=== PATIENT | female | born 1990 | race Caucasian/White ===

== ENCOUNTER 2018-10-30 12:07 | Outpatient (REF) | payer MEDICAID, SELFPAY ==
[2018-11-02 15:16] LABS: Chlamydia Result Negative; GC Result Negative; Specimen Description URINE
== END 2018-10-30 12:27 ==
LOC: LBN 12:07
PROVIDERS: PCP Nurse Practitioner; Visit Provider Nurse Practitioner Women's Health
DX: Z11.3 Encounter for screening for infections with a predominantly sexual mode of transmission (principal)
CPT/HCPCS: 87491; 87591

== ENCOUNTER 2019-03-04 16:07 | Outpatient (REF) | payer MEDICARE, MEDICAID, SELFPAY ==
[2019-03-08 15:30] LABS: Chlamydia Result Negative; GC Result Negative; Specimen Description CERVIX
== END 2019-03-04 16:27 ==
LOC: LBN 16:07
PROVIDERS: PCP Nurse Practitioner; Visit Provider Nurse Practitioner Women's Health
DX: Z11.3 Encounter for screening for infections with a predominantly sexual mode of transmission (principal); R69 Illness, unspecified
CPT/HCPCS: 87491; 87591

== ENCOUNTER 2019-04-06 10:27 | Emergency (ER) | payer MEDICARE, MEDICAID, SELFPAY ==
[2019-04-06 10:28] VITALS: PULSE 82; RESP 16; TEMP 36.6; O2SAT 100
--- NOTE | 2019-04-06 10:29 | W.ED.GENAD ---
Discharge Plan Disposition Patient Disposition: HOME Condition: Stable Discharge Details Chief Complaint: Allergic Clinical Impression: Conjunctivitis, Viral URI, Swelling of eyelid Primary Care Provider: Joann Ball ED Provider: Hedy Flores Home Meds and New Rx's Prescriptions: Continued Mirena 20 mcg/24 hours (5 yrs) 52 mg intrauterine device 1 device IY ONCE RF: 0 Discharge Instructions Instructions: Upper Respiratory Infection (ED), Conjunctivitis (ED) Additional Instructions: Apply cool compresses to your left eye several times daily for 20 minutes at a time. Avoid scratching or rubbing her left eye is much as possible. Take Claritin or Benadryl as needed and directed for itching. If you develop worsening pain or yellow discharge or crusting in her left eye, start the eye antibiotic ointment. Follow-up with your primary care doctor this week for reevaluation. Return to the emergency department if you develop any worsening or new concerning symptoms. Discharge Data Discharge Date/Time-TO BE ENTERED AT DEPARTURE: 04/06/19 11:06 Discharge Physician: Hedy Flores Medical Decision Making 28-year-old female who presents with left eyelid swelling, itching and irritation since this morning in addition to rhinorrhea, mild dry cough and scratchy throat for the past few days. Denies known injury or foreign body. She denies blurry vision, fever, headache or neck pain. She does not wear contacts or glasses. She denies any sore throat at present or shortness of breath. Left eye conjunctive appears injected with upper and lower eyelid mild to moderate edema, more prominent on lower eyelid. No obvious chemosis noted. No foreign body noted. Unable to view TMs due to cerumen impaction. No other ENT abnormalities noted. Due to complaints of URI symptoms in addition to eye irritation, differential diagnosis includes viral conjunctivitis, allergic conjunctivitis. She has no complaint of yellow discharge or crusting, so doubt bacterial conjunctivitis at this time. Doubt corneal abrasion as she has more complaint of itching so do not see an indication for fluorescein staining. She has only minimal edema so do not see an indication for oral steroids. She has no pain with EOMI or significant periorbital edema or erythema, so exam not consistent with periorbital or orbital cellulitis. She is advised to apply cool compresses to her left eye and avoid rubbing or scratching. She is advised to take [id number] URI medications in addition to her Benadryl or Claritin to help with itching. We will send home with erythromycin ointment tube to apply if she has worsening pain or development of yellow crusting or discharge. She is advised to follow-up with primary care doctor for reevaluation and to return here anytime if worse. Medical Records Medical records reviewed: Yes I reviewed the patient's medical records. HPI General Mode of arrival: ambulatory. Date/Time Provider Initiated Documentation: 04/06/19 10:28. Limitations to Documentation: no limitations. Information obtained by: patient. HPI Narrative: Pt is a 28yo F w/ no significant past medical history who presents to the ED w/ a c/o L eyelid swelling and L eye irritation and itching since this morning. She also admits to minimal scratchy throat this morning, nasal congestion and runny nose today. She also has a mild dry cough and thought she was developing a cold. She was at home with her 15 month old daughter and was concerned about her being alone with her and her eye swelling becoming worse so she called an ambulance. She denies fever, headache, neck pain, difficulty swallowing, sore throat now, shortness of breath, chest pain, abdominal pain, new soaps, new lotions, new detergents, new makeup, new pets, new meds, new foods. She denies blurry vision, yellow crusting or discharge, contacts or glasses. She denies any injury to her eye or foreign body sensation. She denies any flashes of light or seeing spots. Related Data Home Medications Medication Instructions Recorded Confirmed levonorgestrel 20 mcg/24 hours (5 1 device IY ONCE 10/30/18 03/04/19 yrs) 52 mg intrauterine device Allergies Allergy/AdvReac Type Severity Reaction Status Date / Time pineapple AdvReac Intermediate Throat Unverified 03/04/19 13:36 emileling Review of Systems Review of Systems All systems reviewed & are unremarkable except as noted in HPI and below Constitutional Reports as per HPI, Denies chills and Denies fever(s) Eyes Denies blurry vision, Reports irritation and Reports itchy eyes ENT Denies dizziness, Reports nasal congestion, Denies sore throat and Denies throat swelling Cardiovascular Denies chest pain and Denies dyspnea Respiratory Reports cough and Denies dyspnea Gastrointestinal Denies abdominal pain, Denies diarrhea and Denies vomiting Genitourinary Denies hematuria and Denies dysuria Musculoskeletal Denies back pain and Denies numbness Integumentary/Breasts Denies lesions and Denies rash Neurologic Denies dizziness, Denies focal weakness and Denies numbness Allergic/Immunologic Reports itchy eyes and Denies throat swelling [facility] Medical History Anorexia nervosa (Acute 09/11/17) Chronic post-traumatic stress disorder (Acute 03/11/13) [facility] counselor psychiatrist Depression with anxiety (Acute 11/25/17) IUD surveillance (Acute) Surgical History No significant past surgical history (Acute) Family History Father Mental disorder Bipolar Seizure disorder Daughter Seizure disorder Social History Smoking/Tobacco Use Status: Current every day Drug use: Never Do you feel safe at home: Yes Do you feel safe in your relationship?: Yes Female Reproductive History Menstrual control method: progestin IUCD History History 7 Para 2 Hx # Term Pregnancies Multiple births Hx # Pregnancies Ectopic pregnancies AB induced 1 Hx Number of Living Children AB spontaneous 4 Exam Const General: cooperative, healthy appearing and no acute distress HENMT Head: normal to inspection Ears: hearing grossly normal bilaterally, external ears normal and EAC abnormal cerumen impaction bilaterally General nose exam: external nose normal Mouth: oral mucosae normal Throat: posterior oropharynx normal Eyes Pupils: PERRL EOM: EOM intact bilaterally Other: Left upper and lower eyelid edema, worse on lower eyelid. Very minimal erythema lower eyelid. No obvious foreign bodies noted with inspection including eyelid eversion. There is no obvious chemosis. There is no periorbital ecchymosis. Neck Neck: normal visual inspection, no lymphadenopathy, trachea midline, supple and No submandibular swelling Resp Effort & Inspection: normal respiratory effort and able to speak in complete sentences Cardio Rate: regular rate Rhythm: regular rhythm Skin General skin exam: no rashes or lesions noted Neuro General: alert, awake and oriented x3 Motor: muscle tone normal throughout Extrem General: normal to inspection and full ROM Psych Appearance: grossly normal Affect: normal affect
[2019-04-06 10:32] VITALS: BP 114/66
--- NOTE | 2019-04-06 10:33 | NUR.NOTE ---
Nursing Note:obtain vs for RN see triage
[2019-04-06] MEDS: Loratidine 10 MG TAB PO (10:59)
[2019-04-06] MEDS: Erythromycin Ophth Oint 3.5 GM TUBE OU (11:00)
[2019-04-06 11:09] VITALS: BP 114/66; PULSE 82; RESP 16; TEMP 36.6; O2SAT 100
== END 2019-04-06 11:06 | disposition home or self-care (01) ==
PROVIDERS: Emergency Provider Physician Assistant; PCP Nurse Practitioner
DX: J06.9 Acute upper respiratory infection, unspecified (principal); H10.32 Unspecified acute conjunctivitis, left eye; H02.844 Edema of left upper eyelid; H02.845 Edema of left lower eyelid; R09.81 Nasal congestion
CPT/HCPCS: 99283

== ENCOUNTER 2020-06-27 03:47 | Outpatient (CLI) | payer MEDICARE, MEDICAID, SELFPAY ==
[2020-06-27 10:19] LABS: HCT 38.6 % (36.0-46.0); HGB 13.1 g/dL (11.2-15.7); MCH 30.8 pg (27.0-33.0); MCHC 33.9 % (32.0-36.0); MCV 90.8 fL (80-95); MPV 9.6 fL (8.0-11.0); Platelet Count 250 10^3/uL (130-400); RBC 4.25 10^6/uL (3.93-5.22); RDW 12.7 % (11.7-14.6); RDW-SD 42.5 fL
[2020-06-27 11:15] LABS: ALT 23 U/L (14-59); AST 18 U/L (15-37); Albumin 3.9 g/dL (3.4-5.0); Alkaline Phosphatase 38 U/L (46-116); Anion Gap 8.4 mmol/L (3-11); BUN 7 mg/dL (7-18); Bilirubin, Total 0.7 mg/dL (0.2-1.0); C-Reactive Protein 0.19 mg/dL (0.0-0.3); CO2 25.6 mmol/L (21.0-32.0); Calcium 8.7 mg/dL (8.5-10.1); Chloride 103 mmol/L (98-107); Glucose 95 mg/dL (74-106); Sodium 137 mmol/L (136-145); TSH (W/Ref FT4) 1.11 uIU/mL (0.36-3.74)
[2020-06-27 11:36] LABS: ESR 7 mm/hr (0-20)
== END 2020-06-27 04:07 ==
PROVIDERS: PCP Nurse Practitioner; Visit Provider Nurse Practitioner Women's Health
DX: R53.83 Other fatigue (principal); M79.18 Myalgia, other site
CPT/HCPCS: 36415; 80053; 85027; 85652; 84443; 86140

== ENCOUNTER 2021-06-26 11:15 | Emergency (ER) | payer MEDICARE, MEDICAID, SELFPAY ==
[2021-06-26 11:20] VITALS: BP 114/64; PULSE 119; RESP 22; TEMP 36.1; O2SAT 96
--- NOTE | 2021-06-26 11:30 | DI.RAD_ITS ---
Exam(s) XR PORTABLE CHEST AP EXAM: XR PORTABLE CHEST AP CLINICAL HISTORY: Cough, R/O PNA TECHNIQUE: 2D digital imaging was performed of the chest. One image was obtained. An AP view was ob tained. COMPARISON: No exams were available for comparison FINDINGS: MEDIASTINUM: Normal. HEART: Normal. PULMONARY VASCULATURE: Normal. LUNGS: Clear. PLEURAL SPACE: No pleural effusion or pneumothorax. BONE:Within normal limits for the patient's age. OTHER FINDINGS:Normal. IMPRESSION: No acute pulmonary findings. DATA REPOSITORY: RADIATION DOSE DELIVERED:
--- NOTE | 2021-06-26 11:40 | W.ED.GENAD ---
Discharge Plan Disposition Patient Disposition: HOME Condition: Stable Discharge Details Clinical Impression: Viral URI with cough Primary Care Provider: Unknown,Unknown ED Provider: Sharon Ludwig Home Meds and New Rx's Prescriptions: New prednisone 20 mg tablet 40 mg PO DAILY 4 Days Qty: 8 RF: 0 benzonatate 100 mg capsule 100 mg PO TID PRN (Reason: cough) Qty: 14 RF: 0 No Action acetaminophen [Tylenol] 325 mg capsule 650 mg PO BID PRNRF: 0 Mirena 20 mcg/24 hours (5 yrs) 52 mg intrauterine device 1 device IY ONCE RF: 0 Discharge Instructions Instructions: Upper Respiratory Infection (ED), Viral Syndrome (ED) Additional Instructions: Chest x-ray shows no evidence for pneumonia at this time. Please continue quarantine until Covid result. Take the prednisone daily scribed and the Tessalon Perles as needed cough. Use the albuterol inhaler 1 or 2 puffs every 4-6 hours as needed. Follow up with primary care provider in 3-5 days. Return to ED sooner if any worsening or concerns. Increase oral fluids. Please take Tylenol or Ibuprofen with food every 4-6 hours as needed for pain and swelling. Please take multivitamin including zinc, vitamin D3 and vitamin C. Stand Alone Forms: PENDING COVID-19 TESTING Medical Decision Making 30-year-old female presents to the ER with chief complaint of shortness of breath and cough for couple months. Patient reports negative Covid test weeks ago. She reports obtaining a home test which she has not received the results from yet. She reports fever in the first couple weeks of illness. She does have a cough chest wall pain with coughing. She reports symptoms worsened last night. She denies any nausea vomiting diarrhea no problems urinating. On initial exam she is mildly tachycardic at a rate of 119, she does have bilateral scattered Tory and inspiratory wheezes and rhonchi. She is a daily smoker. She denies any drug or alcohol. She is a past medical history of anorexia nervosa, PTSD and depression. CBC, CMP, Urine Preg, CXR, Duo Neb, 1 L NS ordered. CXR: FINDINGS: MEDIASTINUM: Normal. HEART: Normal. PULMONARY VASCULATURE: Normal. LUNGS: Clear. PLEURAL SPACE: No pleural effusion or pneumothorax. BONE:Within normal limits for the patient's age. OTHER FINDINGS:Normal. IMPRESSION: No acute pulmonary findings. CBC within normal limits, CMP also within normal limits. Patient given albuterol inhaler to go and 40 mg of prednisone daily times the next 4 days. Send out Covid test ordered. Instructed to follow-up with PCP discussed strict return instructions. This text was generated using [employer] system, please disregard any oddities of phrase or misspellings. HPI General Mode of arrival: ambulatory. Date/Time Provider Initiated Documentation: 06/26/21 11:21. Limitations to Documentation: no limitations. Information obtained by: patient, RN notes reviewed and old records reviewed. HPI Narrative: 30-year-old female presents to the ER with chief complaint of shortness of breath and cough for couple months. Patient reports negative Covid test weeks ago. She reports obtaining a home test which she has not received the results from yet. She reports fever in the first couple weeks of illness. She does have a cough chest wall pain with coughing. She reports symptoms worsened last night. She denies any nausea vomiting diarrhea no problems urinating. On initial exam she is mildly tachycardic at a rate of 119, she does have bilateral scattered Tory and inspiratory wheezes and rhonchi. She is a daily smoker. She denies any drug or alcohol. She is a past medical history of anorexia nervosa, PTSD and depression. Related Data Home Medications Medication Instructions Recorded Confirmed levonorgestrel 20 mcg/24 hours (7 1 device IY ONCE 10/30/18 06/26/21 yrs) 52 mg intrauterine device acetaminophen 325 mg capsule 650 mg PO BID PRN cap 06/20/20 06/26/21 benzonatate 100 mg PO TID PRN #14 cap 06/26/21 prednisone 40 mg PO DAILY 4 Days #8 tab 06/26/21 Previous Rx's Medication Instructions Recorded benzonatate 100 mg PO TID PRN #14 cap 06/26/21 prednisone 40 mg PO DAILY 4 Days #8 tab 06/26/21 Allergies Allergy/AdvReac Type Severity Reaction Status Date / Time pineapple AdvReac Intermediate Throat Unverified 06/26/21 11:22 sweeling General Stated Complaint: RespSymp MARTIN: 3 Review of Systems All systems reviewed & are unremarkable except as noted in HPI and below Cardiovascular Cardiovascular: Denies chest pain, Reports palpitations and Reports dyspnea Respiratory Respiratory: Reports change in phlegm color, Reports cough, Reports pain with cough, Reports dyspnea and Reports wheezing Gastrointestinal Gastrointestinal: Denies diarrhea, Denies nausea and Reports vomiting (1 month ago, none currently) Genitourinary Genitourinary: Denies dysuria Endocrine Endocrine: Reports palpitations Allergic/Immunologic Allergic/Immunologic: Reports wheezing [facility] Active Problem List IUD surveillance (Acute) Anorexia nervosa (Chronic 09/11/17) Chronic post-traumatic stress disorder (Acute 03/11/13) Depression with anxiety (Acute 11/25/17) Medical History IUD surveillance Surgical History No significant past surgical history Family History Father Mental disorder Bipolar Seizure disorder Daughter Seizure disorder Social History Smoking/Tobacco Use Status: Current every day Smoking risk assessment performed?: Yes Alcohol Intake: never Drug use: Never Substance use type: does not use Do you feel safe at home: Yes Do you feel safe in your relationship?: Yes Female Reproductive History Menstrual control method: progestin IUCD History History 7 Para 2 Hx # Term Pregnancies Multiple births Hx # Pregnancies Ectopic pregnancies AB induced 1 Hx Number of Living Children AB spontaneous 4 Exam Narrative Exam Narrative: Constitutional: Alert and oriented x3. Appears stated age. Normal body habitus. Head: Normocephalic, no trauma. Eyes: Pupils PERRL, Red reflex noted, EOM's intact. Eyelids symmetrical without lesions, discharge, or swelling. ENT: Bilateral TM's WNL, External ear normal to inspection, no mastoid TTP, swelling, or erythema, Nasal turbinates boggy, clear nasal discharge. Poor dentition, Posterior pharynx slightly erythemic, no exudate. Chest: RRR, Normal S1, S2, distal pulses intact. Resp: Scattered inspiratory expiratory wheezes noted rhonchi noted to the bases. Abdomen: Soft, non-distended, Normoactive bowel sounds all 4 quads. Musculoskeletal: Normal gait, 5/5 strength to all four extremities. Skin: No suspicious rashes or lesions. Capillary refill less than 2 sec. Neurologic: Cranial nerves II-XII intact. Alert and oriented x 3. Motor: No deficits noted. Sensory: Intact bilaterally all 4 extremities. Reflexes: DTR's intact bilaterally.. Hematologic/Lymphatic: No ecchymosis, no lymphadenopathy. Course Vital Signs Vital signs: Vital Signs Temperature 36.1 C L 06/26/21 11:20 Pulse 119 H 06/26/21 11:20 Respiratory Rate 22 06/26/21 11:20 Blood Pressure 114/64 06/26/21 11:20 Pulse Oximetry 96 06/26/21 11:20 Temperature 36.1 C L 06/26/21 11:20 Temperature Source Temporal Artery Scan 06/26/21 11:20 Pulse 119 H 06/26/21 11:20 Respiratory Rate 22 06/26/21 11:20 Respiratory Effort Non-Labored 06/26/21 11:24 Respiratory Depth Normal 06/26/21 11:24 Blood Pressure 114/64 06/26/21 11:20 Pulse Oximetry 96 06/26/21 11:20 Oxygen Delivery Method Room Air 06/26/21 11:20 Oxygen Flow Rate 0 06/26/21 11:20 Pain Level 6 06/26/21 11:20
[2021-06-26 11:44] VITALS: PULSE 94; RESP 20; RESP 4; O2SAT 99
[2021-06-26] MEDS: Albuterol/Ipratropium 3 ML UPD VIAL UPD (11:44)
[2021-06-26] MEDS: Normal Saline 1,000 ML 1000 ML IV (11:44)
[2021-06-26 11:56] LABS: Abs Immature Grans 0.03 10^3/uL (0.0-0.06); Absolute Basophil Count 0.08 10^3/uL (0.0-0.2); Absolute Eosinophil Count 0.26 10^3/uL (0.0-0.7); Absolute Lymphocyte Count 1.99 10^3/uL (1.2-3.4); Absolute Monocyte Count 0.85 10^3/uL (0.1-0.8); Absolute Neutrophil Count 5.92 10^3/uL (1.2-6.7); Basophils % 0.9; Eosinophils % 2.8; HCT 43.7 % (36.0-46.0); HGB 14.7 g/dL (11.2-15.7); Immature Grans % 0.3; Lymphocytes % 21.8; MCH 30.2 pg (27.0-33.0); MCHC 33.6 % (32.0-36.0); MCV 89.7 fL (80-95); MPV 10.1 fL (8.0-11.0); Monocytes % 9.3; Neutrophils % 64.9; Nucleated RBC 0 %; Platelet Count 270 10^3/uL (130-400); RBC 4.87 10^6/uL (3.93-5.22); RDW-SD 39.6 fL; WBC 9.13 10^3/uL (4.4-10.8)
[2021-06-26] MEDS: predniSONE 20 MG TAB 40 MG PO (12:10)
[2021-06-26 12:13] LABS: ALT 24 U/L (14-59); AST 16 U/L (15-37); Albumin 3.9 g/dL (3.4-5.0); Alkaline Phosphatase 64 U/L (46-116); Anion Gap 10.4 mmol/L (3-11); BUN 13 mg/dL (7-18); Bilirubin, Total 0.6 mg/dL (0.2-1.0); CO2 25.6 mmol/L (21.0-32.0); CREATININE 0.9 mg/dL (0.55-1.02); Chloride 100 mmol/L (98-107); Glucose 91 mg/dL (74-106); Potassium 3.8 mmol/L (3.5-5.1); Sodium 136 mmol/L (136-145)
[2021-06-26 12:41] VITALS: BP 96/50; PULSE 100; RESP 24; TEMP 36.6; O2SAT 96
[2021-06-26] MEDS: Albuterol HFA 8 GM 60 PUFF INH IH (13:29)
--- NOTE | 2021-06-26 15:02 | NUR.NOTE ---
referral to cm for pcp
[2021-06-27 17:16] LABS: COVID-19 RT-PCR UVMMC Result Negative (Negative)
== END 2021-06-26 13:30 | disposition home or self-care (01) ==
PROVIDERS: Emergency Provider Registered Nurse Emergency
DX: J06.9 Acute upper respiratory infection, unspecified (principal); R05.9 Cough, unspecified; Z20.822 Contact with and (suspected) exposure to COVID-19; R06.02 Shortness of breath
CPT/HCPCS: 80053; 81025; 94640; 96360; 99284; U0003; U0005; 71045; 85025; J7512; J7620

== ENCOUNTER 2021-12-12 13:26 | Outpatient (REF) | payer MEDICARE, MEDICAID, SELFPAY ==
--- NOTE | 2021-12-12 13:20 | PAPFT_PTH ---
PATIENT: Ni Irizarry LOC: [facility] U#:[id number] AGE/SX: 31/F ROOM: RE12/12/[address]: Jennifer Hernandez DO : 1990 BED: DIS: 12/12/2021 SPEC #: [id number] RECD: 12/12/21 17:41 STATUS: [facility] REQ #: [id number] CHRISTIAN: 12/12/21 13:[address]: Jennifer Hernandez DEPT: [facility] Cytology RECD BY: Frances Colunga ENTERED: 12/12/21 17:41 SP TYPE: PAPFT OTHR DR: Unknown,Unknown Tissues: 1 - CX/ENDOCX FOR PAP SMEARS Procedures: PAP THIN PREP/U[facility] Screening HPV DNA PROBE Comments: [id number]
== END 2021-12-12 13:27 | disposition home or self-care (01) ==
LOC: LBN 13:26
PROVIDERS: Visit Provider Obstetrics & Gynecology
DX: Z12.4 Encounter for screening for malignant neoplasm of cervix (principal); Z11.51 Encounter for screening for human papillomavirus (HPV)
CPT/HCPCS: 88142; 87624